=== PATIENT | male | born 1945 | race Caucasian/White ===

== ENCOUNTER 2017-10-14 10:13 | Emergency (ER) | payer MEDICARE, OTHER ==
--- NOTE | 2017-10-14 10:38 | EDM.PDOC ---
ED HPI GENERAL MEDICAL PROBLEM - General Chief Complaint: Head Injury Stated Complaint: HEAD INJURY Time Seen by Provider: 10/14/17 10:35 Source of Information: Reports: Patient History Limitations: Reports: No Limitations - History of Present Illness INITIAL COMMENTS - FREE TEXT/NARRATIVE: 72-year-old male attends the ED after slipping and falling on ice on it [place] forward cardioversion. 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 He was transiently dazed but did not lose consciousness. He has no nausea vomiting and only minimal headache at the time presentation complains of some diffuse cervical neck pain. Obvious laceration to the occipital scalp has occurred. Ambulance was summoned bradycardia elected to come to the ED on his own volition. He does not know when his last tetanus toxoid was updated. He denies injuries to his elbows wrists ribs back or hips. Walk just fine. States his glasses did fly off. Onset: Today Onset Date: 10/14/17 Onset Time: 09:40 Duration: Minutes: Location: Reports: Head (Occipital scalp contusion with laceration), Neck Quality: Reports: Ache, Burning Severity: Mild (Mild burning) Improves with: Reports: None Worsens with: Reports: None Context: Reports: Trauma (Slipped and fell on the ice outside.) Associated Symptoms: Reports: Other. 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 9.) Posterior Head Pain Score (Numeric/FACES): 1 - Related Data Allergies Allergy/AdvReac Type Severity Reaction Status Date / Time No Known Allergies Allergy Verified 10/14/17 10:24 Home Meds: Home Meds Aspirin 325 mg PO BID 10/14/17 [History] Metoprolol. 1 tab PO BID 10/14/17 [History] Ranitidine HCl [Zantac] 150 mg PO BID 10/14/17 [History] Past Medical History Cardiovascular History: Reports: Hypertension Gastrointestinal History: Reports: GERD Endocrine/Metabolic History: Reports: Obesity/BMI 30+ Social & Family History - Living Situation & Occupation Living situation: Reports: (Semiretired.) Occupation: Retired ED ROS GENERAL - Review of Systems Review Of Systems: See Below Constitutional: Reports: No Symptoms HEENT: Reports: Glasses Respiratory: Reports: No Symptoms Cardiovascular: Reports: Blood Pressure Problem Endocrine: Reports: No Symptoms GI/Abdominal: Reports: No Symptoms : Reports: Frequency, Other (Known BPH. Nocturia usually 2 or 3.) Musculoskeletal: Reports: Joint Pain (Sometimes in his neck or back knees and hips.) Skin: Reports: No Symptoms Neurological: Reports: No Symptoms Psychiatric: Reports: No Symptoms Hematologic/Lymphatic: Reports: No Symptoms ED EXAM, HEAD INJURY - Physical Exam Exam: See Below Exam Limited By: No Limitations General Appearance: Alert, WD/WN, Anxious, Other (Mildly anxious. He attends the ED with a dressing in place that the M1 spliced.) Head: Scalp Lacerations (He has a stellate scalp laceration with skin loss of proximal be 4 cm in diameter. The stellate laceration is in the middle of this superficial skin loss. Some debridement will be required and the wound will require), Scalp Hematoma ( laceration repair. It is moderately swollen upper midline of the occipital scalp), Active Bleeding Nexus Criteria: Posterior, Midline Cervical Tenderness. No: Evidence of Intoxication, Altered Level of Consciousness, Focal Neurological Deficit, Painful Distraction Injuries Eyes: Bilateral Eye: Normal Inspection Ears: Normal TMs Throat/Mouth: Normal Inspection, Normal Lips, Normal Oropharynx (No blood behind the tympanic membranes), Other (No evidence of injury to the tongue or teeth.) Neck: Tender Lateral. No: Muscle Spasm Respiratory: No Respiratory Distress, Lungs Clear, Normal Breath Sounds, No Accessory Muscle Use, Chest Non-Tender Cardiovascular: Normal Peripheral Pulses, Regular Rate, Rhythm, No Edema, No Gallop, No Murmur, No Rub GI/Abdominal Exam: Normal Bowel Sounds, Soft, Non-Tender, No Organomegaly, Other (Abdominal girth limits ability to palpate solid organs) Back Exam: Normal Inspection, Full Range of Motion. No: CVA Tenderness (L), CVA Tenderness (R) Extremities: Normal Inspection, Normal Range of Motion, Non-Tender, No Pedal Edema, Other (Injuries to the shoulders Humira I elbows wrists) Neurologic: No Motor/Sensory Deficits ( knees or hips identified.), Alert, Normal Mood/Affect, Oriented x 3 - Clark Coma Score Best Eye Response (Clark): (4) Open Spontaneously Best Verbal Response (Cecilia): (5) Oriented Best Motor Response (Cecilia): (6) Obeys Commands Clark Total: 15 ED LACERATION/WOUND & MARIBEL PROC - Laceration/Wound Repair Upper Occipital Head Lac/wound length in cm: 2.5 Appearance: Stellate, Clean Anesthetic Type: Local Local Anesthesia - Lidocaine (Xylocaine): 1% Plain Local Anesthetic Volume: Other (7 mL) Skin Prep: Saline Exploration/Debridement/Repair: Wound Explored, Minimal Debridement Closed with: Sutures Suture Size: 4-0 # of Sutures: 7 Suture Type: Nylon, Interrupted, Running Course - Vital Signs Last Recorded V/S: Last Vital Signs Temp 36.2 C 10/14/17 10:25 Pulse 60 10/14/17 10:25 Resp BP 149/94 H 10/14/17 10:25 Pulse Ox 99 10/14/17 10:25 - Orders/Labs/Meds Orders: Active Orders 24 hr Category Date Time Status Vaccines to be Administered [RC] PER UNIT ROUTINE Care 10/14/17 11:02 Active Meds: Medications Discontinued Medications Generic Name Dose Route Start Last Admin Trade Name Freq PRN Reason Stop Dose Admin Diphtheria/Tetanus/Acell Pertussis 0.5 ml 10/14/17 11:02 10/14/17 11:16 Adacel IM 10/14/17 11:03 0.5 ml .ONCE ONE Administration Lidocaine HCl 10 ml 10/14/17 11:27 10/14/17 11:49 Xylocaine 1% INJECT 10/14/17 11:28 10 ml ONETIME ONE Administration - Radiology Interpretation Free Text/Narrative:: 72-year-old male presents the ED after slipping and falling on ice at work this morning. 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 He simply slipped in the ice and landed hard on his back striking the back of his head hard on the parking lot. He is translating days but did not lose consciousness. He suffered a stellate laceration to the occipital scalp. An os did attend him on scene but he declined their services and came to the ED on his own volition and drove a vehicle. States she has a very minimal headache. Does have some diffuse cervical neck pain. Of note he has a "bull neck"no other injuries are identified on examination. He is unclear when his last tetanus toxoid was updated therefore it will be updated today. Plan CT head and neck to be done. - Re-Assessments/Exams Free Text/Narrative Re-Assessment/Exam: 10/14/17 11:12 CT head is within normal limits showing no skull fractures or intracranial bleeding. There is moderate age-appropriate degenerative changes with increased fluid surrounding the sulci and slightly dilated lateral ventricles. Diffuse small vessel ischemic changes appreciated in both basal ganglia. This was the cervical spine goes there is extensive degenerative changes from C3-6 C8. No fractures however. Plan wound will be cleansed and then will decide if any sutures are required. 10/14/17 11:28 once the wound was cleansed and I debrided the sloughed off skin in the area and there is a stellate lacer laceration approximately 2.5 cm in length that will require suture repair. Lidocaine 1% was ordered. 10/14/17 12:23 stellate laceration proximal the 2.5 cm in length was sutured 7 sutures using 1% non-buffered lidocaine. Sutures will need to be removed in 10 days' time. Dressing applied in the ED. Departure - Departure Time of Disposition: 12:03 Disposition: Home, Self-Care 01 Condition: Fair Clinical Impression: Minor closed head injury Fall Qualifiers: Encounter type: initial encounter Qualified Code(s): W19.XXXA - Unspecified fall, initial encounter Laceration of scalp Qualifiers: Encounter type: initial encounter Qualified Code(s): S01.01XA - Laceration without foreign body of scalp, initial encounter Sprain of cervical neck Qualifiers: Encounter type: initial encounter Qualified Code(s): S13.9XXA - Sprain of joints and ligaments of unspecified parts of neck, initial encounter - Discharge Information Instructions: Head Injury, Adult, Laceration Care, Adult Referrals: PCP,Not In Area [Primary Care Provider] - Forms: ED Department Discharge Additional Instructions: Evaluation the emergency room today in regards to work related injury. Slipped and fallen ice this morning resulted in blunt trauma to the occipital scalp with a stellate laceration measuring over 2.5 cm. No loss of consciousness occurred and there is no signs of concussion. CT of the brain reveals no skull fractures and no intracranial bleeding or mass effect. Degenerative changes related to age. CT of the cervical spine reveals advanced degenerative changes particularly from C3-C7 disc spaces with degenerative arthritis and degenerative disc disease. By history you have bilateral carpal tunnel syndrome which means compression of the nerve at your request which makes her hands go numb and tingly intermittently. Laceration occipital scalp was sutured 7 stitches to provide wound closure. Treatment at home is to daily cleanse the wound with soap and water. Showering is okay. Then apply topical antibiotic such as bacitracin or Polysporin to the wound once daily until healed. Sutures need to be removed in 10 days' time. In the area has been completely sloughed off an area 4 cm in diameter. This will heal but it'll take about 3 weeks to heal completely. It is okay to take either Motrin or Tylenol for headache relief if needed. Increased pain in your neck to develop over the next couple of days due to cervical neck ligaments strain. 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 Her tetanus, diphtheria and pertussis vaccination was updated today and is good for the next 10 years. - My Orders Last 24 Hours: My Active Orders 10/14/17 11:02 Vaccines to be Administered [RC] PER UNIT ROUTINE - Assessment/Plan Last 24 Hours: My Active Orders 10/14/17 11:02 Vaccines to be Administered [RC] PER UNIT ROUTINE
[2017-10-14] MEDS ORDERED: Diphtheria,Pertussis(Acell),Tetanus Vaccine 0.5 ML SDV IM ONE (11:02)
--- NOTE | 2017-10-14 11:26 | CT ---
Head CT Technique: Multiple axial sections through the brain were obtained. Intravenous and oral contrast not utilized. Comparison: No previous intracranial imaging. Findings: Soft tissue swelling seen within the posterior scalp. Ventricles along with basal cisterns and sulci over convexities are mildly prominent. No abnormal parenchymal densities are seen. No evidence of intracranial hemorrhage. No midline shift or mass effect is seen. Bone window settings were reviewed which shows no acute calvarial abnormality. Visualized sinuses are clear. Impression: 1. Mild generalized atrophy. Soft tissue swelling within the posterior scalp. 2. No acute intracranial abnormality is identified. Diagnostic code #2
[2017-10-14] MEDS ORDERED: Lidocaine 1% 10 ML MDV INJECT ONE (11:27)
--- NOTE | 2017-10-14 11:28 | CT ---
CT cervical spine Technique: Multiple axial sections were obtained from above C1 inferiorly to the bottom of T2. Reconstructed sagittal and coronal images were reviewed. Comparison: No previous cervical spine imaging. Findings: Posterior skull base is intact. Mild disc space narrowing is noted at C2-C3. More severe disc space narrowing is noted at C3-C4 through C7-T1. Diffuse endplate osteophytes are seen anteriorly as well as mild diffuse posterior osteophytes. Degenerative spurring also noted throughout the uncovertebral joints. Vertebral bodies and posterior arches are intact. No fracture is identified. Incidental ligamentum nuchal calcification is seen. Scattered areas of neural foraminal stenosis is seen. Impression: 1. Diffuse degenerative change and incidental ligamentum nuchal calcifications. 2. No acute fracture or abnormal subluxation is identified. Diagnostic code #2
== END 2017-10-14 12:27 | disposition home or self-care (01) ==
LOC: JD.ED 10:13
DX: S01.01XA Laceration without foreign body of scalp, initial encounter (principal); S13.9XXA Sprain of joints and ligaments of unspecified parts of neck, initial encounter; S09.90XA Unspecified injury of head, initial encounter; I10 Essential (primary) hypertension; Z79.82 Long term (current) use of aspirin; Z79.899 Other long term (current) drug therapy; Z23 Encounter for immunization; W00.9XXA Unspecified fall due to ice and snow, initial encounter; W22.8XXA Striking against or struck by other objects, initial encounter
CPT/HCPCS: 12001; 70450; 70450-26; 72125; 72125-26; 90471; 90715; 99283-25; 99284-25